=== PATIENT | male | born 1970 | race Caucasian/White ===

== ENCOUNTER 2016-12-31 09:45 | Emergency (ER) | payer OTHER ==
[~2016-12-31] VITALS: Ht 172.7 cm; Wt 60.3 kg
== END 2016-12-31 10:29 | disposition home or self-care (01) ==
LOC: CFTX 09:45 → CED 09:45 → CFTX 10:19
DX: Q68.1 Congenital deformity of finger(s) and hand (principal); F17.210 Nicotine dependence, cigarettes, uncomplicated; Z23 Encounter for immunization
CPT/HCPCS: 90471; 90715; 99283